=== PATIENT | female | born 1985 | race Caucasian/White ===

== ENCOUNTER → 2018-12-14 | Outpatient (CLI) | payer OTHER ==
--- NOTE | 2018-12-15 06:42 | US ---
EXAMINATION TYPE: US thyroid st tissue head/neck DATE OF EXAM: 12/14/2018 COMPARISON: NONE CLINICAL HISTORY: R59.9 ENLARGED LYMPH NODES. Palpable area inferior to left ear x couple months Left neck inferior to ear: 1.8 x 1.1 x 1.2cm lymph node seen Right neck for comparison: appears wnl IMPRESSION: As above, abnormal adenopathy is present with eccentric thickened cortex and enlargement greater than 1 cm short axis. Differential includes infectious, inflammatory, and neoplastic etiolog y. If lesion does not resolve with treatment further investigation with cross-sectional imaging or co ntrast enhanced CT/MRI advised to evaluate this and look for additional suspicious adenopathy.
== END ==
LOC: RADUSWWP 16:08
PROVIDERS: ATTEND Family Medicine
DX: R59.9 Enlarged lymph nodes, unspecified (principal)
CPT/HCPCS: 76536

== ENCOUNTER → 2018-12-27 | Outpatient (CLI) | payer OTHER ==
--- NOTE | 2018-12-27 22:14 | CT ---
EXAMINATION TYPE: CT soft tissue neck w con DATE OF EXAM: 12/27/2018 HISTORY: Enlarged lymph node, left TMJ area COMPARISON: Neck ultrasound December 14, 2018. CT DLP: 298.8 mGycm. Automated Exposure Control for Dose Reduction was Utilized. TECHNIQUE: CT scan of the neck is performed with IV Contrast, patient injected with 100 mL of Isovue 300, axial images are obtained, coronal and sagittal reformatted images are reviewed. FINDINGS: A vitamin E marker is placed at level of clinical concern left parotid level axial image 62 . Near this level there are prominent but subcentimeter lymph nodes, just inferior to this there are larger but subcentimeter lymph nodes in the posterior cervical triangle. A reference left-sided neck lymph node remain subcentimeter short axis anterior to the carotid artery measuring 10 x 6 mm axial i mage 44. Largest measurement left-sided lymph node is submandibular lymph node measuring 10 x 10 mm a xial image 55. On the right side there is 13 x 8 mm lymph node same axial image anterolateral to the carotid and jugular vessels. Airway: No gross abnormality seen. Parotid/submandibular glands: Parotid glands are symmetric and felt within normal limits. Submandibul ar glands also felt symmetric and unremarkable.. Carotid/Vascular Structures: No significant abnormality. Osseous Structures: No suspicious abnormality is seen. Other: Nasal septum is deviated to right of midline. IMPRESSION: Prominent but subcentimeter lymph nodes throughout the neck bilaterally correlate with ul trasound with retention of fatty hilum favored benign in etiology. Neoplasm such as lymphoma less lik dwayne. If palpable lesions enlarge further imaging would be advised.
== END | disposition home or self-care (01) ==
LOC: RADCTMAIN 16:58
PROVIDERS: ATTEND Nurse Practitioner Family
DX: R59.9 Enlarged lymph nodes, unspecified (principal)
CPT/HCPCS: 70491; Q9967

== ENCOUNTER → 2020-10-10 | Outpatient (CLI) | payer OTHER ==
--- NOTE | 2020-10-10 10:18 | US ---
EXAMINATION TYPE: US pelvis complete transvag DATE OF EXAM: 10/10/2020 COMPARISON: NONE CLINICAL HISTORY: 35-year-old female N92.1 Excessive and frequent menstruation with irregularity. Ble eding since August. TECHNIQUE: Transvaginal (TV) and Transabdominal (TA) . FINDINGS: EXAM MEASUREMENTS: Uterus: 13.5 x 8.3 x 7.7 cm Endometrial Stripe: Not seen due to fibroids. Left Ovary: 3.6 x 2.4 x 2.5 cm 1. Uterus: Retroverted. Multiple fibroids seen, the largest is centrally located obscuring the endom etrial stripe and measuring 7.1 x 6.5 x 6.1 cm. Small 5 mm cervical nabothian cyst. 2. Endometrium: Obscured by fibroids. 3. Right Ovary: Obscured by overlying bowel gas 4. Left Ovary: Cystic area 1.5 x 2.1 x 1.3 cm. 5. Bilateral Adnexa: wnl 6. Posterior cul-de-sac: wnl IMPRESSION: 1. Retroverted fibroid uterus. Largest fibroid is centrally located measuring 7.1 cm and obscures the endometrial stripe, possible large submucosal or intercavitary component. Consider female pelvic MRI for fibroid mapping and/or [facility] [employer] referral if indicated. 2. Unable to visualize the right ovary. There is a 2.1 cm dominant follicle or functional cyst in the left ovary.
== END | disposition home or self-care (01) ==
LOC: RADUSWWP 08:10
PROVIDERS: ATTEND Family Medicine
DX: D25.9 Leiomyoma of uterus, unspecified (principal); N85.4 Malposition of uterus; N83.202 Unspecified ovarian cyst, left side
CPT/HCPCS: 76830; 76856

== ENCOUNTER → 2021-01-13 | Outpatient (CLI) | payer OTHER ==
--- NOTE | 2021-01-13 10:18 | MM ---
Reason for exam: screening (asymptomatic). Baseline mammogram. History: Taking hormonal contraceptives. Physical Findings: Nurse Summary: 3cm nodule in the right breast at 11 o'clock (nurse ms). MG Screening Mammo w CAD Bilateral CC and MLO view(s) were taken. Finding: There is an intermediate concern, suspicious spiculated irregular mass in the upper outer quadrant of the right breast. These results were verbally communicated with the patient and result sheet given to the patient on 01/13/21. ASSESSMENT: Incomplete: need additional imaging evaluation, BI-RAD 0 RECOMMENDATION: Ultrasound of the right breast.
--- NOTE | 2021-01-13 10:19 | USB ---
Reason for exam: additional evaluation requested from abnormal screening. History: Taking hormonal contraceptives. US Breast Workup Limited RT Right limited breast ultrasound including focal area of concern, retroareolar and axilla demonstrates a 1.7 x 1.4 x 1.3cm irregular, spiculated, solid, hypoechoic, vascular lesion at 11 o'clock BB and a 0.9cm oval, solid lymph node at the axilla tail. These results were verbally communicated with the patient and result sheet given to the patient on 01/13/21. ASSESSMENT: Highly suggestive of malignancy, BI-RAD 5 RECOMMENDATION: Ultrasound core biopsy of the right breast. Called Dr. Davis's office with mammographic findings and has scheduled an appointment for the patient for 01/16/21 at 7:[address] Mckinley. Biopsy scheduled for 01/22/21 at 8:00. PRELIMINARY REPORT CALLED AND FAXED TO DR. MCKINLEY ON 01/13/21.
== END | disposition home or self-care (01) ==
LOC: RADMAMWWP 07:26
PROVIDERS: ATTEND Obstetrics & Gynecology
DX: Z12.31 Encounter for screening mammogram for malignant neoplasm of breast (principal); R92.8 Other abnormal and inconclusive findings on diagnostic imaging of breast
CPT/HCPCS: 77067

== ENCOUNTER → 2021-01-16 | Outpatient (CLI) | payer OTHER ==
[2021-01-16 07:29] VITALS: BP 110/71; PULSE 80; RESP 16; TEMP 98.3
--- NOTE | 2021-01-16 08:04 | P.GSHP ---
History of Present Illness H&P Date: 01/16/21 Chief Complaint: Breast mass right Eliza is a 35-year-old white female seen in consultation for Dr. Davis notes a lump in her right breast. She states it has been present for approximately 5 years. She states that she is uncertain if it has increased in size. It is not painful. It was felt to be attributed to fibrocystic disease. She had her first mammogram performed on 5320. This was felt to be incomplete in irregular spiculated lesion is noted in the upper quadrant of the right breast. No lesions of concern were noted in the left breast. An ultrasound was then performed. Ultrasound revealed a 1.7 x 1.4 cm irregular spiculated mass in the right breast in the upper outer quadrant. Ultrasound core biopsy was recommended. She does not feel any lumps masses or nodules in her breast. She is complaining of any skin changes or nipple discharge. She does not report any recent trauma or infection in the breast. She's never had any surgery of the breast. Caffeine: One cup of coffee and 1 pop per day, decreased from her prior consumption Nicotine: Half-pack per day for approximately 15 years Chocolate: Occasional Hormones: None Family History: maternal aunt: breast cancer Hormonal history: Menarche:15 , breast fed: yes, age at : 23 periods irregular painfull fibroids, scheduled for a hysterectomy next month, LMP: now, typical 5 days BCP: not now, used for 6 years Surgical history: Ligation Medical history: Negative Social history: Nicotine: Half a pack per day for approximately 15 years Alcohol: Occasional, monthly wine with dinner Drugs: Negative - Constitutional Constitutional: Denies chills, Denies fever - EENT Eyes: denies blurred vision, denies pain Ears: deny: decreased hearing, tinnitus Ears, nose, mouth and throat: Denies headache, Denies sore throat - Breasts Breasts: bilateral: as per HPI - Cardiovascular Cardiovascular: Denies chest pain, Denies shortness of breath - Respiratory Respiratory: Denies cough, Denies 7 - Gastrointestinal Gastrointestinal: Denies abdominal pain, Denies diarrhea, Denies nausea, Denies vomiting - Genitourinary (Female) Genitourinary: Denies dysuria, Denies hematuria - Menstruation Menstruation: Reports as per HPI - Musculoskeletal Comment: back pain, lower for years no change Musculoskeletal: Denies myalgias - Integumentary Integumentary: Denies pruritus, Denies rash - Neurological Neurological: Denies numbness, Denies weakness - Psychiatric Psychiatric: Denies anxiety, Denies depression - Endocrine Endocrine: Denies fatigue, Denies weight change - Hematologic/Lymphatic Comment: none - Allergic/Immunologic Allergic/Immunologic: Reports seasonal allergies Past Medical History History of Any Multi-Drug Resistant Organisms: None Reported Smoking Status: Current every day smoker Medications and Allergies Home Medications Medication Instructions Recorded Confirmed Type No Known Home Medications 01/14/21 01/16/21 History Allergies Allergy/AdvReac Type Severity Reaction Status Date / Time No Known Allergies Allergy Verified 01/16/21 07:25 Surgical - Exam Vital Signs Temp Pulse Resp BP Pulse Ox 98.3 F 80 16 110/71 100 01/16/21 07:25 01/16/21 07:25 01/16/21 07:25 01/16/21 07:25 01/16/21 07:25 BMI 22 - General well developed, well nourished, no distress - Eyes normal ocular movement - ENT normal nares, normal mucosa - Neck no masses, trachea midline - Respiratory normal expansion, normal respiratory effort, clear to auscultation - Cardiovascular Rhythm: regular Heart Sounds: normal: S1, S2 - Abdomen Abdomen: soft, non tender, no guarding, no rigid, no rebound - Integumentary normal turgor - Neurologic no disoriented, no combative - Musculoskeletal normal gait - Psychiatric oriented to time, oriented to person, oriented to place, speech is normal, memory intact Breast Exam: BRA: 34DD inspection: Grade 2 ptosis bilaterally Palpation: Right breast: Multi-positional exam fullness upper-outer quadrant area about 2 cm; consistant with lesion on mammogram, dense breast and no other dominant masses or nodules of concern Right axilla: Shoddy adenopathy Left breast: Multiple positional exam dense breast no discrete dominant masses or nodules of concern Left axilla: No adequate opportunity of concern, shoddy adenopathy Results Mammogram and ultrasound reviewed with Dr. Burnette Assessment and Plan Assessment: Impression: 1. Mass right breast 2. Radiographic abnormality right breast Plan: 1. Ultrasound core biopsy right breast 2. Follow-up after ultrasound core biopsy Risk and benefits of the procedure discussed with the patient. Risks include but are not limited to bleeding, infection, reaction to the anesthetic. If this were to be negative she understands would be considered discordant and resection would be recommended. She understands and wishes to proceed. CC: Dr. Davis Cc: Dr. Mc
== END ==
LOC: WWCWWP 07:16
PROVIDERS: ATTEND Surgery
DX: N63.11 Unspecified lump in the right breast, upper outer quadrant (principal); F17.200 Nicotine dependence, unspecified, uncomplicated

== ENCOUNTER → 2021-01-22 | Day surgery (SDC) | payer OTHER ==
[2021-01-22 07:10] VITALS: RESP 16
[2021-01-22 08:54] VITALS: BP 109/75; PULSE 70; TEMP 98.2
--- NOTE | 2021-01-22 08:56 | USB ---
EXAMINATION TYPE: US biopsy breast VAD RT, US biopsy breast add'l VAD RT, MG diagnostic mammo RT wo CAD DATE OF EXAM: 01/22/2021 CLINICAL HISTORY: N63, Breast lump/mass. TECHNIQUE: Ultrasound guided core biopsy of right 11:00 breast And right axilla COMPARISON: NONE FINDINGS: The procedure of ultrasound guided core biopsy was explained to the patient. Benefits, alternatives, and risks were discussed. An informed consent was then obtained. The patient was placed in supine positioning for imaging and for the procedure. The overlying skin was prepped and draped in usual sterile fashion. Lidocaine buffered with bicarbonate was used as anesthetic into the skin and subcutaneous tissue up to area of concern in the right breast and axilla. A percy was made with surgical scalpel. Under ultrasound guidance, a 12-gauge vacuum assisted biopsy gun device was used to obtain 3 core samples from the right 11:00 mass and 2 core samples from the right axilla.. Following this, a biopsy clips were left in lesion and a sample the lymph node right axilla. Postprocedural mammogram demonstrates appropriate clip placement. The patient tolerated the procedure well without any immediate complication. The patient was kept in the radiology department for short stay after the procedure and then discharged home in stable condition. IMPRESSION: Successful, uncomplicated ultrasound guided core biopsy of areas of concern in the right breast and axilla, full pathology results to follow. Pathology Results: Malignant A. RIGHT BREAST, ELEVEN O'CLOCK, ULTRASOUND GUIDED CORE BIOPSY: Invasive well differentiated ductal carcinoma (Grade 1). See Surgical Pathology Cancer Case Summary. B. RIGHT AXILLA, CORE BIOPSY: Benign lymph node tissue. See comment. Recommendation Surgical consult of the right breast. YOBANY
== END ==
LOC: RADUSWWP 06:53
PROVIDERS: ATTEND Surgery
DX: C50.911 Malignant neoplasm of unspecified site of right female breast (principal); Z17.0 Estrogen receptor positive status [ER+]
CPT/HCPCS: 88305; 88342; 88341; 77065; 19083; 19084; A4648; J2001

== ENCOUNTER → 2021-01-30 | Outpatient (CLI) | payer OTHER ==
[2021-01-30 09:10] VITALS: BP 113/69; PULSE 91; RESP 16; TEMP 98.5
--- NOTE | 2021-01-30 11:13 | P.PN ---
Subjective Progress Note Date: 01/30/21 Principal diagnosis: Right breast invasive ductal carcinoma Toya is a 35-year-old white female status post [place] [id number]. Pathology revealed invasive well-differentiated ductal carcinoma grade 1. The lesion was ER/MO positive and HER-2 negative. It is approximately 1.7 cm in size. The right axilla showed a lymph node of concern biopsy was performed which was benign lymph node tissue. Her case was reviewed with Dr. Loya from radiology and it was recommended bilateral MRI be performed. The patient and her come in for discussion today. The patient states that following her ultrasound core biopsy she had pain under her axilla and she was very concerned that she was not given any pain medication. I had a long discussion with the patient and her regarding the pathology results. Concern nurse navigator was present for the discussion. I've discussed the recommendation for breast MRI as well as genetic testing. The patient is scheduled in the near future for hysterectomy and does not want this to be postponed. I've also called Dr. Davis and personally with the patient and her present. Discussed the timing of the hysterectomy. He would like to have the genetic testing done prior to the hysterectomy and we have called medical oncology and she is going to see them today regarding genetic testing. The patient's case will be presented at tumor Board. I talked with the patient and her regarding surgical options which would include lumpectomy plus radiation therapy with sentinel node sampling versus mastectomy plus or minus immediate reconstruction. Until we have all the information from genetic testing and the MRI no definite decision has been made. We've also discussed the possibility of chemotherapy depending the Oncotype results. Objective - Vital Signs Vital signs: Vital Signs Temp 98.5 F 01/30/21 09:07 Pulse 91 01/30/21 09:07 Resp 16 01/30/21 09:07 BP 113/69 01/30/21 09:07 Pulse Ox 100 01/30/21 09:07 Intake & Output 01/29/21 01/30/21 01/30/21 18:59 06:59 18:59 Weight 61.235 kg - Constitutional General appearance: Present: average body habitus - EENT Eyes: Present: EOMI ENT: Present: hearing grossly normal - Neck Neck: Present: normal ROM - Respiratory Respiratory: bilateral: CTA - Cardiovascular Rhythm: regular Heart sounds: normal: S1, S2 - Integumentary Integumentary Comment(s): core biopsy site right breast and right axilla clean and dry with some mild ecchymosis no evidence of any infection or hematoma - Musculoskeletal Musculoskeletal: Present: gait normal - Psychiatric Psychiatric: Present: A&O x's 3, appropriate affect, intact judgment & insight Assessment and Plan Assessment: Impression: 1. Stage I right breast cancer, we have discussed the fact that the lymph node biopsy may be discordant and that she may actually have a positive node which would make this a more advanced lesion Plan: 1. Presentation of case at tumor board 2. Bilateral breast MRI 3. Genetic testing 4. After discussion with Dr. Davis the patient will most likely have her hysterectomy prior to the definitive treatment for the breast although with both recommended that the cancer be taken care of first 5. Follow-up after genetic testing and MRI results available Cc: Dr. Mc, Dr. Davis I spent approximately an hour in discussion with the patient and her regarding the results of the biopsy. Time was spent in reviewing results, physical examination, and counseling.
== END ==
LOC: WWCWWP 08:58
PROVIDERS: ATTEND Surgery
DX: C50.911 Malignant neoplasm of unspecified site of right female breast (principal); F17.200 Nicotine dependence, unspecified, uncomplicated

== ENCOUNTER → 2021-01-31 | Outpatient (CLI) | payer OTHER ==
--- NOTE | 2021-02-03 08:20 | BMR ---
EXAMINATION TYPE: MR breast BILAT wo/w con DATE OF EXAM: 01/31/2021 COMPARISON: Bilateral breast mammogram January 13, 2021 BI-RADS 0. Right breast ultrasound January 13, 2021 BI- RADS 5. HISTORY: Rt breast cancer 1.7 cm 11:00 position on biopsy January 22, 2021 invasive well-differentiated d uctal carcinoma, palpable lump right axilla corresponds to abnormal lymph node. Biopsy results lymph node however were benign. TECHNIQUE: A series of fat and water weighted images in the long and short axis views of both breasts are obtained in conjunction with dynamic contrast MRI with subtraction technique. The patient was i njected with 6.5 mL intravenous Gadavist gadolinium contrast. Three-dimensional and additional post processing imaging is created on independent workstation and reviewed during official interpretation of this study. FINDINGS: Extremely dense fibroglandular tissue bilaterally is redemonstrated. T2 and STIR weighted i mages show no significant cystic change or fluid collections. There are symmetric prominent bilateral axillary lymph nodes noted. Intact lymph nodes in the left axilla are slightly more numerous and lar rah in size versus right axilla. Delayed dynamic postcontrast imaging shows no suspicious internal ma mmary adenopathy. There is symmetric mild background enhancement. With regards to the left breast. No suspicious skin thickening is seen. No pathologic enhancement or enhancing masses noted. The chest wall is intact. With regards to the right breast there is artifact from biopsy clip middle depth upper breast slightl y outer aspect 11:00 position corresponding to biopsy-proven cancer as it surrounds enhancing spicula ranjan roughly 2.5 x 1.5 cm neoplasm. Computer measures lesion at 2.7 cm AP by 1.3 cm transverse but giv en its craniocaudal extent of 3.6 cm. Artifact from biopsy clip in the right axilla not as well identified. No additional pathologic enhanc ement or enhancing masses. No abnormal skin thickening seen. Chest wall is intact. IMPRESSION: Biopsy-proven malignancy right breast identified. No multicentric disease or evidence for invasive malignancy in the left breast. Prominent bilateral axillary lymph nodes are present. This m akes ultrasound biopsy of abnormal appearing lymph node right axilla on ultrasound that came back katey ign felt concordant. BI-RADS 2 benign findings left breast. BI-RADS 6 biopsy-proven cancer right breast. Recommendation: Appropriate surgical and oncologic management
== END | disposition home or self-care (01) ==
LOC: RADMRIMAIN 15:05
PROVIDERS: ATTEND Surgery
DX: C50.411 Malignant neoplasm of upper-outer quadrant of right female breast (principal); R59.0 Localized enlarged lymph nodes
CPT/HCPCS: C8937; C8908; A9585; 77049